=== PATIENT | female | born 1980 | race Caucasian/White ===

== ENCOUNTER 2021-02-22 08:40 | Emergency (ER) | payer MEDICAID ==
[2021-02-22] MEDS ORDERED: Sodium Chloride 0.9% 10 ML Syringe FLUSH PRN (09:10)
--- NOTE | 2021-02-22 09:10 | EDM.PDOC ---
ED HPI GENERAL MEDICAL PROBLEM - General Chief Complaint: Abdominal Pain Stated Complaint: LOWER ABD PAIN Time Seen by Provider: 02/22/21 09:00 Source of Information: Reports: Patient History Limitations: Reports: No Limitations - History of Present Illness INITIAL COMMENTS - FREE TEXT/NARRATIVE: Helene is a 40-year-old male presenting to the ED for evaluation of acute onset of right lower abdominal pain that started this morning. The patient reports that her abdomen is more bloated today. The pain is dull at baseline but then has episodes of sharp, stabbing pain. She denies any fever or chills but has had nausea and diminished appetite. The patient has a past medical history significant for essential tremor, ankylosing spondylitis, and fibromyalgia. She is status post total hysterectomy with a right oophorectomy and bilateral salpingectomy which was done 7 years ago. She is currently on gabapentin, Cymbalta, and primidone. She has no allergies. Right Lower Pelvic Pain Score (Numeric/FACES): 10 - Related Data Allergies Allergy/AdvReac Type Severity Reaction Status Date / Time No Known Allergies Allergy Verified 02/22/21 09:09 Home Meds: Home Meds DULoxetine [Cymbalta] 60 mg PO DAILY 02/22/21 [History] Gabapentin [Neurontin] 600 mg PO BID 02/22/21 [History] Primidone 50 mg PO BID 02/22/21 [History] ED ROS GENERAL - Review of Systems Review Of Systems: See Below Constitutional: Reports: Decreased Appetite. Denies: Fever, Chills HEENT: Reports: No Symptoms. Denies: Throat Pain Respiratory: Reports: No Symptoms Cardiovascular: Reports: No Symptoms Endocrine: Reports: No Symptoms GI/Abdominal: Reports: Abdominal Pain (Right lower quadrant), Decreased Appetite, Distension, Nausea. Denies: Vomiting Musculoskeletal: Reports: No Symptoms Skin: Reports: No Symptoms Neurological: Reports: No Symptoms Psychiatric: Reports: No Symptoms Hematologic/Lymphatic: Reports: No Symptoms Immunologic: Reports: No Symptoms ED EXAM, GI/ABD - Physical Exam Exam: See Below Exam Limited By: No Limitations General Appearance: Alert, Mild Distress Eyes: Bilateral: EOMI Throat/Mouth: Normal Oropharynx, Normal Voice, No Airway Compromise Head: Atraumatic, Normocephalic Neck: Normal Inspection, Supple Respiratory/Chest: No Respiratory Distress, Lungs Clear, Normal Breath Sounds Cardiovascular: Normal Peripheral Pulses, Regular Rate, Rhythm, No Murmur GI/Abdominal Exam: Normal Bowel Sounds, Soft, Distended (Tympany to percussion across the abdomen), Guarding, Tender (Right lower quadrant). No: Rigid, Rebound Extremities: Normal Inspection Neurological: Alert, Oriented, Normal Cognition, No Motor/Sensory Deficits Psychiatric: Normal Affect, Normal Mood Course - Vital Signs Last Recorded V/S: Last Vital Signs Temp 36.7 C 02/22/21 08:47 Pulse 86 02/22/21 08:47 Resp 16 02/22/21 08:47 BP 127/75 02/22/21 08:47 Pulse Ox 97 02/22/21 08:47 - Orders/Labs/Meds Orders: Active Orders 24 hr Category Date Time Status Iopamidol [Isovue-300 (61%)] Med 02/22/21 09:22 Active 100 ml IV . DIRECTED PRN Ketorolac [Toradol] Med 02/22/21 10:25 Once 30 mg IVPUSH ONETIME ONE Sodium Chloride 0.9% [Normal Saline] 79 ml Med 02/22/21 09:30 Active IV ASDIRECTED Sodium Chloride 0.9% [Saline Flush] Med 02/22/21 09:10 Active 10 ml FLUSH ASDIRECTED PRN Isolation [COMM] Stat Oth 02/22/21 09:11 Ordered Saline Lock Insert [OM.PC] Routine Oth 02/22/21 09:10 Ordered Medication Orders Sodium Chloride (Normal Saline) 79 mls @ 3 mls/sec IV ASDIRECTED [facility] Last Admin: 02/22/21 09:38 Dose: 3 mls/sec Documented by: GEENA Iopamidol (Iopamidol 612 Mg/Ml 100 Ml Bottle) 100 ml IV . DIRECTED PRN PRN Reason: RADIOLOGY EXAM Stop: 02/23/21 09:23 Last Admin: 02/22/21 09:37 Dose: 100 ml Documented by: GEENA Ketorolac Tromethamine (Ketorolac 30 Mg/Ml Sdv) 30 mg IVPUSH ONETIME ONE Stop: 02/22/21 10:26 Sodium Chloride (Sodium Chloride 0.9% 10 Ml Syringe) 10 ml FLUSH ASDIRECTED PRN PRN Reason: Keep Vein Open Last Admin: 02/22/21 09:27 Dose: 10 ml Documented by: PREILOR Labs: Laboratory Tests 02/22/21 02/22/21 02/22/21 Range/Units 09:06 09:10 09:26 WBC 6.4 (4.5-11.0) K/uL RBC 4.93 (3.30-5.50) M/uL Hgb 14.9 (12.0-15.0) g/dL Hct 44.1 (36.0-48.0) % MCV 90 (80-98) fL MCH 30 (27-31) pg MCHC 34 (32-36) % Plt Count 223 (150-400) K/uL Neut % (Auto) 54.1 (36-66) % Lymph % (Auto) 35.4 (24-44) % [place] % (Auto) 9.7 H (2-6) % Eos % (Auto) 0.5 L (2-4) % Baso % (Auto) 0.3 (0-1) % Sodium (140-148) mmol/L Potassium (3.6-5.2) mmol/L Chloride (100-108) mmol/L Carbon Dioxide (21-32) mmol/L Anion Gap (5.0-14.0) mmol/L BUN (7-18) mg/dL Creatinine (0.6-1.0) mg/dL Est Cr Clr Drug Dosing mL/min Estimated GFR (MDRD) (>60) Glucose (74-106) mg/dL Calcium (8.5-10.1) mg/dL Total Bilirubin (0.2-1.0) mg/dL AST (15-37) U/L ALT (12-78) U/L Alkaline Phosphatase (46-116) U/L C-Reactive Protein (0.0-0.3) mg/dL Total Protein (6.4-8.2) g/dL Albumin (3.4-5.0) g/dL Globulin (2.3-3.5) g/dL Albumin/Globulin Ratio (1.2-2.2) Urine Color Yellow (YELLOW) Urine Appearance Slightly cloudy A (CLEAR) Urine pH 5.5 (5.0-8.0) Ur Specific [place]yx >= 1.030 (1.008-1.030) Urine Protein Negative (NEGATIVE) mg/dL Urine Glucose (UA) Negative (NEGATIVE) mg/dL Urine Ketones Negative (NEGATIVE) mg/dL Urine Occult Blood Negative (NEGATIVE) Urine Nitrite Negative (NEGATIVE) Urine Bilirubin Negative (NEGATIVE) Urine Urobilinogen 0.2 (0.2-1.0) EU/dL Ur Leukocyte Esterase Negative (NEGATIVE) Urine RBC 5-10 H (0-5) Urine WBC 5-10 H (0-5) Ur Epithelial Cells Few Amorphous Sediment Not seen Urine Bacteria Many Urine Mucus Not seen Influenza Type A RNA Negative (NEGATIVE) RSV RNA (INAAT) Negative (NEGATIVE) Influenza Type B RNA Negative (NEGATIVE) SARS-CoV-2 RNA (GERSON) Negative (NEGATIVE) 02/22/21 Range/Units 09:26 WBC (4.5-11.0) K/uL RBC (3.30-5.50) M/uL Hgb (12.0-15.0) g/dL Hct (36.0-48.0) % MCV (80-98) fL MCH (27-31) pg MCHC (32-36) % Plt Count (150-400) K/uL Neut % (Auto) (36-66) % Lymph % (Auto) (24-44) % [place] % (Auto) (2-6) % Eos % (Auto) (2-4) % Baso % (Auto) (0-1) % Sodium 140 (140-148) mmol/L Potassium 4.5 (3.6-5.2) mmol/L Chloride 103 (100-108) mmol/L Carbon Dioxide 26 (21-32) mmol/L Anion Gap 10.9 (5.0-14.0) mmol/L BUN 10 (7-18) mg/dL Creatinine 0.7 (0.6-1.0) mg/dL Est Cr Clr Drug Dosing 83.65 mL/min Estimated GFR (MDRD) > 60 (>60) Glucose 92 (74-106) mg/dL Calcium 8.8 (8.5-10.1) mg/dL Total Bilirubin 0.4 (0.2-1.0) mg/dL AST 17 (15-37) U/L ALT 29 (12-78) U/L Alkaline Phosphatase 69 (46-116) U/L C-Reactive Protein 0.18 (0.0-0.3) mg/dL Total Protein 7.3 (6.4-8.2) g/dL Albumin 4.0 (3.4-5.0) g/dL Globulin 3.3 (2.3-3.5) g/dL Albumin/Globulin Ratio 1.2 (1.2-2.2) Urine Color (YELLOW) Urine Appearance (CLEAR) Urine pH (5.0-8.0) Ur Specific [place]yx (1.008-1.030) Urine Protein (NEGATIVE) mg/dL Urine Glucose (UA) (NEGATIVE) mg/dL Urine Ketones (NEGATIVE) mg/dL Urine Occult Blood (NEGATIVE) Urine Nitrite (NEGATIVE) Urine Bilirubin (NEGATIVE) Urine Urobilinogen (0.2-1.0) EU/dL Ur Leukocyte Esterase (NEGATIVE) Urine RBC (0-5) Urine WBC (0-5) Ur Epithelial Cells Amorphous Sediment Urine Bacteria Urine Mucus Influenza Type A RNA (NEGATIVE) RSV RNA (INAAT) (NEGATIVE) Influenza Type B RNA (NEGATIVE) SARS-CoV-2 RNA (GERSON) (NEGATIVE) Meds: Medications Generic Name Dose Route Start Last Admin Trade Name Jadyn PRN Reason Stop Dose Admin Sodium Chloride 79 mls @ 3 mls/sec 02/22/21 09:30 02/22/21 09:38 Normal Saline IV 3 mls/sec ASDIRECTED JUHI Administration Iopamidol 100 ml 02/22/21 09:22 02/22/21 09:37 Iopamidol 612 Mg/Ml 100 Ml Bottle IV 02/23/21 09:23 100 ml . DIRECTED PRN Administration RADIOLOGY EXAM Ketorolac Tromethamine 30 mg 02/22/21 10:25 Ketorolac 30 Mg/Ml Sdv IVPUSH 02/22/21 10:26 ONETIME ONE Sodium Chloride 10 ml 02/22/21 09:10 02/22/21 09:27 Sodium Chloride 0.9% 10 Ml Syringe FLUSH 10 ml ASDIRECTED PRN Administration Keep Vein Open Discontinued Medications Generic Name Dose Route Start Last Admin Trade Name Frekathe PRN Reason Stop Dose Admin Hydromorphone HCl 0.5 mg 02/22/21 09:30 Hydromorphone 0.5 Mg/0.5 Ml Syringe IVPUSH 02/22/21 09:31 ONETIME ONE Ondansetron HCl 4 mg 02/22/21 09:30 02/22/21 09:44 Ondansetron 4 Mg/2 Ml Sdv IVPUSH 02/22/21 09:31 4 mg ONETIME ONE Administration Sodium Chloride 10 ml 02/22/21 09:22 02/22/21 09:38 Sodium Chloride 0.9% 10 Ml Syringe FLUSH 02/22/21 09:23 10 ml ONETIME ONE Administration - Radiology Interpretation Free Text/Narrative:: I reviewed the images of the CT of the abdomen with contrast as well as the report. The report shows a copious amount of colonic stool throughout the entire colon without evidence for obstruction. This is consistent with slow transit constipation. - Re-Assessments/Exams Free Text/Narrative Re-Assessment/Exam: 02/22/21 10:26 I reviewed the patient's labs showing a normal CBC, comprehensive metabolic profile and urinalysis. The CT of the abdomen and pelvis with c ontrast shows an enormous amount of colonic stool throughout the entire colon consistent with constipation. Patient was given Zofran 4 mg IV push as well as Toradol 30 mg IV push. For her current situation she certainly needs a cleanout. I would recommend MiraLAX twice daily until she is able to feel better. This was discussed with her in depth. At this time she is suitable for discharge in satisfactory condition. Indications return to ED were discussed. Departure - Departure Time of Disposition: 10:27 Disposition: Home, Self-Care 01 Clinical Impression: Right lower quadrant abdominal pain, Slow transit constipation - Discharge Information Instructions: Constipation, Adult Referrals: PCP,None [Primary Care Provider] - Forms: ED Department Discharge Care Plan Goals: Your work-up today shows your blood work is normal and your CT of the abdomen and pelvis shows a significant amount of stool throughout your entire colon likely the cause of your pain. This is consistent with slow transit constipation. I would recommend MiraLAX 1 capful twice daily until you feel better. It may take 2 to 3 days before you are able to pass this amount of sto ol. A quicker but more violent type would be taking a bottle of magnesium citrate. Magnesium citrate is the human equivalent of liquid bulk sausage casing tier off and may cause significant cramping. Whichever way you decide to proceed, please make sure you take plenty of water as this will soften the stool and make it easier to pass. Sepsis Event Note (ED) - Evaluation Sepsis Screening Result: No Definite Risk - Focused Exam Vital Signs: Vital Signs Temp Pulse Resp BP Pulse Ox 02/22/21 08:47 36.7 C 86 16 127/75 97 - Problem List & Annotations (1) Right lower quadrant abdominal pain SNOMED Code(s): 411153750 Code(s): R10.31 - RIGHT LOWER QUADRANT PAIN Status: Acute Priority: Medium Current Visit: Yes (2) Slow transit constipation SNOMED Code(s): 66115429 Code(s): K59.01 - SLOW TRANSIT CONSTIPATION Status: Acute Priority: Medium Current Visit: Yes - Problem List Review Problem List Initiated/Reviewed/Updated: Yes - My Orders Last 24 Hours: My Active Orders 02/22/21 09:10 Sodium Chloride 0.9% [Saline Flush] 10 ml FLUSH ASDIRECTED PRN Saline Lock Insert [OM.PC] Routine 02/22/21 09:11 Isolation [COMM] Stat 02/22/21 09:22 Iopamidol [Isovue-300 (61%)] 100 ml IV . DIRECTED PRN 02/22/21 09:30 Sodium Chloride 0.9% [Normal Saline] 79 ml IV ASDIRECTED 02/22/21 10:25 Ketorolac [Toradol] 30 mg IVPUSH ONETIME ONE - Assessment/Plan Last 24 Hours: My Active Orders 02/22/21 09:10 Sodium Chloride 0.9% [Saline Flush] 10 ml FLUSH ASDIRECTED PRN Saline Lock Insert [OM.PC] Routine 02/22/21 09:11 Isolation [COMM] Stat 02/22/21 09:22 Iopamidol [Isovue-300 (61%)] 100 ml IV . DIRECTED PRN 02/22/21 09:30 Sodium Chloride 0.9% [Normal Saline] 79 ml IV ASDIRECTED 02/22/21 10:25 Ketorolac [Toradol] 30 mg IVPUSH ONETIME ONE
[2021-02-22] MEDS ORDERED: Sodium Chloride 0.9% 10 ML Syringe FLUSH ONE (09:22)
[2021-02-22] MEDS ORDERED: Iopamidol 612 MG/ML 100 ML Bottle IV PRN (09:22)
[2021-02-22] MEDS ORDERED: HYDROmorphone 0.5 MG/0.5 ML Syringe IVPUSH ONE (09:30)
[2021-02-22] MEDS ORDERED: Ondansetron 4 MG/2 ML SDV IVPUSH ONE (09:30)
[2021-02-22 09:57] LABS: CORONAVIRUS COVID-19 NAA NEGATIVE (NEGATIVE)
--- NOTE | 2021-02-22 10:12 | CT ---
Abdomen Pelvis w Cont CLINICAL HISTORY: Right lower quadrant pain COMPARISON: None. TECHNIQUE: Transverse scans were obtained from the base of the lungs to the pubic symphysis following oral contrast and IV infusion of contrast.Auto dosage reduction and iterative reconstructiontechniques employed. FINDINGS: The lung bases are clear. The liver shows some mild diffuse fatty infiltration. The gallbladder shows a tiny filling defect in the dependent portion towards the tip of the gallbladder on image #18. This may represent a small stone or tiny polyp.. The spleen contains scattered granulomata. The pancreas shows no mass or inflammatory change. The adrenal glands appear normal bilaterally . The kidneys show no mass stones or hydronephrosis. There is a subcentimeter cyst in midpole left kidney.. The ureters have normal course and caliber. The bladder has a normal contour. The uterus is been removed. There is a 2.0 x 1.7 cm cystic focus in the left adnexa.. The aorta has a normal course and contour. There is no suspicious retroperitoneal adenopathy. The small intestinal gas pattern is nonacute. There is moderate diffuse fecal retention. There is no evidence suggest appendicitis. IMPRESSION: Moderate diffuse fecal retention Possible small gallstone or polyp in the gallbladder. Follow-up with ultrasound in a nonemergent basis should be considered.
[2021-02-22] MEDS ORDERED: Ketorolac 30 MG/ML SDV IVPUSH ONE (10:25)
== END 2021-02-22 11:00 | disposition home or self-care (01) ==
LOC: JP.ED 08:40
DX: K59.01 Slow transit constipation (principal); Z90.710 Acquired absence of both cervix and uterus; Z90.722 Acquired absence of ovaries, bilateral; Z20.822 Contact with and (suspected) exposure to COVID-19
CPT/HCPCS: 0241U; 36415; 74177; 80053; 81001; 85025; 86140; 96374; 96375; 99284; J1885; J2405; Q9967

== ENCOUNTER 2022-11-20 09:06 | Emergency (ER) | payer MEDICAID ==
[2022-11-20 09:26] LABS: BASOPHILS ABSOLUTE AUTO 0.02 K/uL (0.00-0.10); BASOPHILS PERCENT AUTO 0.3 % (0.1-1.3); EOSINOPHILS ABSOLUTE AUTO 0.07 K/uL (0.00-0.40); EOSINOPHILS PERCENT AUTO 0.9 % (0.0-5.4); HEMATOCRIT 36.8 % (34.3-46.0); HEMOGLOBIN 12.5 g/dL (11.2-15.5); IMMATURE GRAN ABSOLUTE AUTO 0.01 K/uL (0.00-0.23); IMMATURE GRAN PERCENT AUTO 0.1 % (0.0-0.7); LYMPHOCYTES ABSOLUTE AUTO 2.04 K/uL (0.8-3.3); LYMPHOCYTES PERCENT AUTO 26.6 % (11.4-47.7); MEAN CORPUSCULAR HEMOGLOBIN 30.2 pg (31.6-35.5); MEAN CORPUSCULAR VOLUME 88.9 fL (81.4-99.0); MONOCYTES ABSOLUTE AUTO 0.51 K/uL (0.20-0.90); MONOCYTES PERCENT AUTO 6.6 % (3.3-12.6); NEUTROPHILS ABSOLUTE AUTO 5.02 K/uL (1.0-7.6); NEUTROPHILS PERCENT AUTO 65.5 % (40.0-78.1); PLATELET COUNT,PLT 219 K/uL (130-375); RED BLOOD CELL COUNT 4.14 M/uL (3.77-5.24); WHITE BLOOD CELL COUNT,WBC 7.7 K/uL (3.2-11.0)
[2022-11-20] MEDS ORDERED: Sodium Chloride 0.9% 1,000 ML IV SCH ×2 (09:30→12:15)
[2022-11-20 09:43] LABS: APPEARANCE,URINE SLIGHTLY CLOUDY (CLEAR); BILIRUBIN,URINE NEGATIVE (NEGATIVE); COLOR,URINE YELLOW (YELLOW); GLUCOSE,URINE NEGATIVE (NEGATIVE); KETONES,URINE NEGATIVE (NEGATIVE); LEUKOCYTE ESTERASE,URINE SMALL (NEGATIVE); NITRITE,URINE NEGATIVE (NEGATIVE); OCCULT BLOOD,URINE NEGATIVE (NEGATIVE); PH,URINE 6.5 (5.0-8.0); PROTEIN,URINE NEGATIVE (NEGATIVE); UROBILINOGEN,URINE 0.2 EU/dL (0.2-1.0)
[2022-11-20 09:44] LABS: AMORPHOUS SEDIMENT,URINE NOT SEEN; BACTERIA,URINE MODERATE; EPITHELIAL CELLS,URINE MODERATE; MUCUS,URINE NOT SEEN; RBC,URINE 0-5 (0-5)
[2022-11-20 09:50] LABS: A/G RATIO 1.1 (1.2-2.2); ALANINE AMINOTRANSFERASE,ALT 40 U/L (12-78); ALBUMIN 3.3 g/dL (3.4-5.0); ALKALINE PHOSPHATASE 64 U/L (46-116); ASPARTATE AMNIOTRANSFERASE,AST 19 U/L (15-37); BILIRUBIN TOTAL 0.2 mg/dL (0.2-1.0); BLOOD UREA NITROGEN,BUN 15 mg/dL (7-18); CALCIUM 8.5 mg/dL (8.5-10.1); CARBON DIOXIDE,CO2 27 mmol/L (21-32); CHLORIDE,CL 103 mmol/L (100-108); CREATININE 0.7 mg/dL (0.6-1.0); ESTIMATED GFR 110 mL/min (>60); GLUCOSE RANDOM 85 mg/dL (74-106); POTASSIUM,K 3.9 mmol/L (3.6-5.2); PROTEIN TOTAL,TP 6.2 g/dL (6.4-8.2); SODIUM,NA 138 mmol/L (140-148)
[2022-11-20 09:52] LABS: ANION GAP 11.9 mmol/L (5.0-14.0)
== END 2022-11-20 14:15 | disposition home or self-care (01) ==
LOC: JP.ED 09:06
DX: E86.0 Dehydration (principal); R07.89 Other chest pain; B34.9 Viral infection, unspecified; Z20.822 Contact with and (suspected) exposure to COVID-19; Z79.899 Other long term (current) drug therapy
CPT/HCPCS: 36415; 70450; 80053; 81001; 84484; 85025; 87086; 87635; 87651; 93005; 96360; 96361; 99285; J7030; U0002